=== PATIENT | female | born 1940 | race Caucasian/White ===

== ENCOUNTER 2024-08-05 18:18 | Observation (INO) | payer MEDICARE, BC, SELFPAY ==
--- NOTE | 2024-08-05 18:26 | EKG_ITS ---
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
[2024-08-05 18:48] VITALS: BP 173/70; PULSE 65; RESP 18; TEMP 36.8; O2SAT 94; BMI 22.6
--- NOTE | 2024-08-05 19:00 | XR_ITS ---
Examination: PA chest single view TECHNIQUE: Upright PA chest single view Standing time: August 05, 2024 at 1923 hours INDICATIONS: Such as pain beginning this morning. FINDINGS: Normal heart size Mild opacity left base obscuring detail left hemidiaphragm. Right lung clear. No pulmonary edema. IMPRESSION: Early pneumonia left base.
--- NOTE | 2024-08-05 19:01 | PD.EDRME ---
Rapid Medical Screening Exam E Arrival date/time: 08/05/24 18:18 84F with history of HTN presents to ED with 1 day of CP. Chief Complaint: Chest Pain Vital signs: Vital Signs Temperature 98.3 F 08/05/24 18:48 Pulse Rate 65 08/05/24 18:48 Respiratory Rate 18 08/05/24 18:48 Blood Pressure 173/70 H 08/05/24 18:48 Pulse Oximetry (%) 94 L 08/05/24 18:48 Oxygen Delivery Method Room Air 08/05/24 18:48
[2024-08-05 19:41] LABS: Basophils % (Auto) 0 % (0-2.5); Eosinophils # (Auto) 0.1 Thou/mm3 (0.0-0.5); Eosinophils % (Auto) 1 % (0-10); Hematocrit 42.8 % (36.0-46.0); Immature Granulocytes % (Auto) 0 % (0-0); Immature Granulocytes Auto 0.01 Thou/mm3 (0.00-0.00); Lymphocytes % (Auto) 35 % (10-50); Mean Corpuscular HGB Conc 32.7 g/dl (31.0-37.0); Mean Corpuscular Hemoglobin 30.8 pg (25.0-35.0); Mean Corpuscular Volume 94 fL (80-100); Monocytes # (Auto) 0.5 Thou/mm3 (0.0-0.8); Monocytes % (Auto) 9 % (0-12); Neutrophils # (Auto) 3.1 Thou/mm3 (1.8-7.7); Neutrophils % (Auto) 54 % (37-80); Nucleated Red Blood Cell % 0 /100 WBC (0); Platelet Count 189 Thou/mm3 (140-440); RDW Standard Deviation 49.3 fL (36.4-46.3); Red Blood Count 4.54 Miln/mm3 (4.00-5.20); White Blood Count 5.7 Thou/mm3 (3.6-11.0)
[2024-08-05 19:58] LABS: B-Type Natriuretic Peptide 39 pg/mL (0-100); Partial Thromboplastin Time 25.8 Seconds (22.0-36.0); Prothrombin Time 10.8 Seconds (9.0-12.2)
[2024-08-05 19:59] LABS: Alanine Aminotransferase 43 U/L (10-49); Albumin, Serum 4.2 gm/dL (3.4-4.8); Albumin/Globulin Ratio 1.8 (1.2-2.2); Alkaline Phosphatase 98 U/L (46-116); Anion Gap 8 (7-16); Aspartate Amino Transferase 37 U/L (0-34); BUN/Creatinine Ratio 15 Ratio (12-20); Bilirubin,Total 0.6 mg/dL (0.3-1.2); Blood Urea Nitrogen 16 mg/dL (9-23); Calcium 9.9 mg/dL (8.3-10.6); Calcium (Corrected) 9.9 mg/dL (8.5-10.1); Carbon Dioxide 28.4 mMol/L (20.0-31.0); Chloride 106 mMol/L (98-107); Creatinine (Component) 1.1 mg/dL (0.6-1.3); Estimated Creatinine Clearance 28.2 mL/min (>60); Globulin 2.3 gm/dL (2.3-3.5); Glucose 106 mg/dL (74-106); Osmolality,Calculated 284 (275-295); Potassium 3.8 mMol/L (3.4-5.1); Sodium 142 mMol/L (136-145); Total Protein 6.5 gm/dL (5.7-8.2); Troponin I < 0.020 ng/mL (0.0-0.045); eGFR 49 See Note
--- NOTE | 2024-08-05 23:33 | EDNOTE_ITS ---
ED Chest Pain RME/HPI General Chief Complaint: Chest Pain Stated Complaint: Chest pain left side, light headed, radiates Arrival date/time: 08/05/24 18:18 RME / HPI RME / HPI narrative: 08/05/24 18:18 84F with history of HTN presents to ED with 1 day of CP. ----- Dr. Bright?s Main ED Evaluation: 84yo female with a history of HTN, HLD accompanied by her granddaughter presents to the ED for a chief complaint of chest pain radiating to her left arm. Patient states she's had intermittent chest pain, reporting her pain lasts for 15 seconds, but comes back frequently . She denies any shortness of breath, N/V, sweating or any other associated symptoms. Denies any tobacco use. No known allergies. Related Data Allergies Allergy/AdvReac Type Severity Reaction Status Date / Time NKA* Allergy Uncoded 12/30/11 13:55 Review of Systems Review of Systems Systems Reviewed: All systems reviewed, normal except as documented Narrative Review of Systems: Gen: No fever, no chills, no weight loss EYES: No discharge, no visual changes, no pain HEENT: No ear pain, no congestion, no sore throat PULM: No shortness of breath, no cough, no congestion CV: + chest pain, no dyspnea on exertion, no palpitations GI: No nausea, no vomiting, no diarrhea, no pain, no constipation : No frequency, no urgency, no dysuria Musc/skel: No joint pain, no back pain Skin: No rash. Warm and dry. Psyc: No hallucinations, no depression Heme/Lymph: No easy bleeding or bruising tendencies Neuro: No weakness, no headache Past Medical History Social History SMOKING STATUS: Never smoker ED Exam Narrative Physical exam: GENERAL APPEARANCE: alert and oriented x 4, well-developed, well-nourished, no acute distress VITALS: All vitals were reviewed and the pulse ox is 95% on room air, which is normal according to my interpretation. HEENT: Normocephalic, atraumatic; pupils equal, round, reactive to light; EOMI; mucous membranes pink, moist; oropharynx clear NECK: Supple LUNGS: CTABL; no wheezes, no rales, no rhonchi HEART: Regular rate, regular rhythm; normal S1, S2; no murmurs ABDOMEN: non distended; normal BS; soft, no tenderness, no guarding, no rebound; no masses, no organomegaly, no hernia BACK: no CVA tenderness EXTREMITIES: atraumatic; no edema NEUROLOGIC: awake; alert and oriented x4; cranial nerves II-XII grossly intact; no focal sensory or motor deficits PSYCHIATRIC: appropriate mood and affect SKIN: warm, dry, normal color; no rashes Course Course Course Narrative: CXR is ordered for determining the etiology of chest pain. Quality Measures none Orders Category Date Time Status EKG (ED ONLY) *Do not use* NOW Care 08/05/24 18:26 Completed EKG (ED Only) Stat Exams 08/05/24 18:26 Draft XR chest 1V portable Stat Exams 08/05/24 19:00 Completed B-Type Natriuretic Peptide Stat Lab 08/05/24 19:23 Completed CBC Stat Lab 08/05/24 19:23 Completed Comprehensive Metabolic Panel Stat Lab 08/05/24 19:23 Completed Partial Thromboplastin Time Stat Lab 08/05/24 19:23 Completed Prothrombin Time with INR Stat Lab 08/05/24 19:23 Completed Troponin I Stat Lab 08/05/24 19:23 Completed Troponin I Stat Lab 08/05/24 23:48 Ordered Aspirin Med 08/05/24 23:48 Discontinued 325 mg PO X1 ONE Nitroglycerin Oint 2% [Nitro-paste Oint 2%] Med 08/05/24 23:48 Discontinued 1 inch TOP X1 ONE Vital Signs Vital signs: Vital Signs Temperature 98.3 F 08/05/24 18:48 Pulse Rate 65 08/05/24 18:48 Respiratory Rate 18 08/05/24 18:48 Blood Pressure 173/70 H 08/05/24 18:48 Pulse Oximetry (%) 94 L 08/05/24 18:48 Oxygen Delivery Method Room Air 08/05/24 18:48 Chest Pain MDM Narrative MDM Narrative:: Scribe Attestation: 08/05/24 Becca Nguyen am scribing for and in the presence of Dr. Bright. Patient data External records reviewed:: [facility] previous records (Per chart review, patient has no previous ED visits or admissions to this facility.) Clinical information provided by:: patient Social determinants that could affect healthcare access:: none Patient has the following chronic illnesses:: HTN, HLD How is presenting disease/condition affected by chronic disease/condition?: exacerbated by Evaluation data The following diagnostics were reviewed and interpreted by me:: lab results, radiology exam(s) and EKG tracing(s) Lab and/or radiology exams considered but not ordered:: none Interpretation Summary: CBC is normal, PTT is normal, PT and INR are normal, CMP is normal, initial troponin is normal, according to my interpretation. EKG done at 1852, NSR, rate of 65, left axis deviation, no ectopy, Q waves in lead III, avF, V1-V4, no STEMI, according to my interpretation. ----- [place] [facility] Report Signed Patient: MARYJANE FRY. Record#: [id number] Birthdate: 1940 Age/Sex: 84 / F Location: [facility] Attending Dr: Ordering Physician: Param Healy PA-C Date of Service: 08/05/24 Procedure(s): XR chest 1V portable Accession Number(s): [id number] cc: Mika([facility])Usha MD; Giorgio Coto MD; Param Healy PA-C~ Examination: PA chest single view TECHNIQUE: Upright PA chest single view Standing time: August 05, 2024 at 1923 hours INDICATIONS: Such as pain beginning this morning. FINDINGS: Normal heart size Mild opacity left base obscuring detail left hemidiaphragm. Right lung clear. No pulmonary edema. IMPRESSION: Early pneumonia left base. Dictated By: Giorgio Coto MD Signed By: <Electronically signed by Giorgio Coto MD in > 08/05/24 194 Medications / Prescriptions Medications or Prescriptions considered but not ordered:: none Medication administrations:: Medication Administration History Discontinued Medications Aspirin (Aspirin 325 Mg Tablet) 325 mg PO X1 ONE Stop: 08/05/24 23:49 Nitroglycerin (Nitroglycerin Oint 2% 1 Inch Packet) 1 inch TOP X1 ONE Stop: 08/05/24 23:49 see above Consultations Consultation(s) initiated? (list below): Yes Consultation #1 (Physician, Specialty, Details): Discussed case with [Dr. Jackson] from [cardiology] regarding [consultation]. Discussed patients ED course, exam findings, labs, and radiology results. States to admit the patient. Time: 23:44 Consultation #2 (Physician, Specialty, Details): Discussed case with [the resident physician, attending Dr. Burkett] from Hospitalist service regarding admission. Discussed patients ED course, exam findings, labs, and radiology results. The Hospitalist [agrees] to accept the patient for admission. Time: 23:59 Diagnosis Chest Pain Differential Diagnosis: pneumothorax, st elevation myocardial infa rction and other (NSTEMI, angina, pneumonia) Most likely diagnosis given after review of the tests above:: see below Admission Indicated Admission indicated?: indicated Admission Request Was there a request for admission?: Yes Admission Attestation Admission request attestation: Discussed case with [] from Hospitalist service regarding admission. Discussed patients ED course, exam findings, labs, and radiology results. The Hospitalist [agrees,declines] to accept the patient for admission. Disposition Plan Disposition Plan: Admit Discharge Plan Plan Patient Disposition: Admit Acute Care w/in Hospital Prescriptions/Referrals Referrals: Mika([facility])Usha MD [Primary Care Provider] - In 1 week Problem List Clinical Impression: Chest pain Patient/Caregiver Discharge Instructions Print Language: Filipino Stand Alone Forms: Ayla Award Info., Patient Portal Info Letter
[2024-08-06] VITALS (8 sets, daily range): BP systolic 104–175; BP diastolic 49–64; PULSE 62–94; RESP 16–23; TEMP 36.5–36.9; O2SAT 92–96
[2024-08-06] MEDS: Aspirin 325 MG TABLET PO (00:10)
[2024-08-06] MEDS: NITROGLYCERIN OINT 2% 1 INCH PACKET TOP (00:10)
[2024-08-06 00:33] LABS: Troponin I < 0.020 ng/mL (0.0-0.045)
--- NOTE | 2024-08-06 00:47 | ESHP_ITS ---
Documentation for date of: 08/06/24 HPI History of Present Illness Chief complaint: Chest pain History of present illness: 84-year-old female with past medical history of hypertension, hyperlipidemia presented to the hospital with chief complaints of chest pain since 3 to 4 months. Patient is a healthy individual and stated that she is having on and off chest pain which is more only present on the left side associated with radiation to left arm, without any relation to physical activity and not associated with palpitations, diuresis, shortness of breath, wheezing, pedal edema, orthopnea and PND episodes. Explained that her chest pain is thumping in character. Pain relieves without any medications and rest. On the day of admission, patient had a similar episode of chest pain but lasted for a longer time for which the patient came to the hospital. Denies fever, cough, recent heavy weight lifts. At baseline, patient is able to do her routine daily activities around home and able to walk without the help of a walker. Reported that there is no change in her recent physical activity after she noticed this chest pain ED Course: -Initial vitals were stable except for mildly elevated blood pressure 173/70 mmHg -Labs showed CBC and CMP within normal limits. Troponins are negative -EKG showed sinus rhythm without any ST T wave changes, Q waves noted in lead III. Chest x-ray did not show any infiltrates. -In the ED, patient was given aspirin 325 Mg and nitroglycerin patch. -Patient was admitted for chest pain to rule out ACS Past medical history: Hypertension, hyperlipidemia Past surgical history: Not significant Social history: Denies smoking, alcohol, other illicit drug abuse. Review of Systems Review of Systems Systems Reviewed: All systems reviewed, normal except as documented Exam Vital Signs Temp Pulse Resp BP Pulse Ox O2 Del Method 98.3 F 62 18 175/64 H 94 L Room Air 08/05/24 18:48 08/06/24 00:10 08/05/24 18:48 08/06/24 00:10 08/05/24 18:48 08/05/24 18:48 Narrative Exam General: Awake. HEENT: Normocephalic, atraumatic, mucous membranes moist. Heart: Regular rate and rhythm, no murmurs. Lungs: Clear to auscultation with no wheezing or crackles. Abdomen: Soft, nondistended, nontender, positive bowel sounds. ?No guarding or rebound tenderness. Neurologic: Alert and oriented x3, no gross neurological deficit, and patient able to move all 4 extremities. Extremities: No edema. Skin: No rash or ecchymoses. Results: Labs 08/06/24 08:06 08/06/24 08:06 Labs: Short CBC 08/05/24 Range/Units 19:23 WBC 5.7 (3.6-11.0) Thou/mm3 Hgb 14.0 (12.0-16.0) g/dL Hct 42.8 (36.0-46.0) % Plt Count 189 (140-440) Thou/mm3 BMP 08/05/24 19:23 Sodium 142 Potassium 3.8 Chloride 106 Carbon Dioxide 28.4 BUN 16 Creatinine 1.1 Glucose 106 Calcium 9.9 Cardiac Enzymes 08/05/24 08/06/24 Range/Units 19:23 00:05 Troponin I < 0.020 < 0.020 (0.0-0.045) ng/mL Liver Function 08/05/24 Range/Units 19:23 Total Bilirubin 0.6 (0.3-1.2) mg/dL AST 37 H (0-34) U/L ALT 43 (10-49) U/L Alkaline Phosphatase 98 (46-116) U/L Albumin 4.2 (3.4-4.8) gm/dL Quality Measures Quality Measures none Advance care planning discussed with:: patient Medications Home Medications and Allergies Home Medications ?Medication ?Instructions ?Recorded ?Confirmed ?Type atorvastatin 20 mg tablet mg 08/06/24 History losartan 100 tab 08/06/24 History mg-hydrochlorothiazide 25 mg tablet Allergies Allergy/AdvReac Type Severity Reaction Status Date / Time No Known Allergies Allergy Unverified 08/06/24 13:49 Visit Medications Acetaminophen (Acetaminophen 325 Mg Tablet) 650 mg PO Q6H PRN PRN Reason: Fever >101.5 Stop: 09/05/24 00:39 Aspirin (Aspirin Ec 81 Mg Tabec) 81 mg PO QDAY SHANELL Stop: 09/05/24 08:59 Atorvastatin Calcium (Atorvastatin Calcium 20 Mg Tablet) 20 mg PO HS SHANELL Stop: 09/05/24 20:59 Enoxaparin Sodium (Enoxaparin Sod Inj 40 Mg/0.4 Ml Syringe) 40 mg SC QDAY SHANELL Stop: 08/20/24 08:59 Magnesium Hydroxide (Milk Of Magnesia Susp 30 Ml Udc) 30 ml PO QDAY PRN; Protocol PRN Reason: CONSTIPATION Stop: 09/05/24 00:39 Ondansetron HCl (Ondansetron Inj 2 Mg/Ml Inj 2 Ml) 4 mg IV Q6H PRN; Protocol PRN Reason: NAUSEA OR VOMITING Stop: 09/05/24 00:39 Pantoprazole Sodium (Pantoprazole 40 Mg Tablet) 40 mg PO QDAY SHANELL Stop: 09/05/24 08:59 Discontinued Medications Aspirin (Aspirin 325 Mg Tablet) 325 mg PO X1 ONE Stop: 08/05/24 23:49 Last Admin: 08/06/24 00:10 Dose: 325 mg Nitroglycerin (Nitroglycerin Oint 2% 1 Inch Packet) 1 inch TOP X1 ONE Stop: 08/05/24 23:49 Last Admin: 08/06/24 00:10 Dose: 1 inch Assessment & Plan Plan 84-year-old female with past medical history of hypertension, hyperlipidemia presented to the hospital with chief complaints of chest pain since 3 to 4 months and admitted to rule out ACS # Angina, likely noncardiac -Patient came to the hospital with complaints of chest pain since 3 to 4 months, on and off radiating to left arm -Denies aggravating and relieving factors, no associated sweating, shortness of breath, palpitations -1/3 of typical anginal symptoms. -But patient is found to have a risk factors like age, hypertension, hyperlipidemia -Vitals are stable at the time of admission except for mildly elevated blood pressure 173/70 mmHg. -Troponins are negative when checked 5 hours apart -EKG showed normal sinus rhythm with no ST-T wave changes -Chest x-ray showed no infiltrates. Plan -Started on aspirin and atorvastatin -Consulted director industrial museum Dr. Jackson and will appreciate his recommendations -Ordered an echo, TSH HbA1c and lipid profile # History of hypertension -Blood pressures are within normal limits -Monitor blood pressure and start medications as needed # History of hyperlipidemia -Lipid profile is ordered and started on atorvastatin 40 Mg p.o. at bedtime Hospital Maintenance: Dispo: Observation, telemetry DVT ppx: Enoxaparin GI ppx: Pantoprazole Diet: Cardiac IV lines: Peripheral Code status: Full code Patient plan of care was discussed with the attending physician, Dr. Lizy Marie, PGY1 Attending Provider Attestation/Addendum I attest that I was physically present for the evaluation, physical examination, lab and imaging review of the patient with the residents. I discussed the case with the residents and agree with the findings and plans of care as documented above. Patient is an 84 years old female with past medical history of hypertension, hyperlipidemia who presented to the ED with complaint of chest pain for last 3 to 4 months. She states that she has been having on and off chest pain radiating to her left arm which occurs randomly both at rest and on activity. Denies palpitations, shortness of breath. The chest pain are relieved without medications. But today, her chest pain lasted longer and she decided to visit the ED. Patient had a blood pressure of 173/70 in the ED, rest of the vitals were within normal limits. Initial troponin was negative. EKG shows sinus rhythm without ST changes. Patient received aspirin and nitroglycerin in the ED. Cardiology was consulted by ED, who recommended admitting patient for observation to rule out acute CAD. We will keep patient on observation for atypical chest pain, we will trend troponin, started on aspirin and atorvastatin and await cardiology recommendations. Rosario Medel MD
[2024-08-06] MEDS: ATORVASTATIN CALCIUM 20 MG TABLET 40 MG PO (01:48)
[2024-08-06 08:25] LABS: Basophils % (Auto) 0 % (0-2.5); Eosinophils % (Auto) 1 % (0-10); Hematocrit 40.4 % (36.0-46.0); Hemoglobin 13.3 g/dL (12.0-16.0); Immature Granulocytes % (Auto) 1 % (0-0); Immature Granulocytes Auto 0.04 Thou/mm3 (0.00-0.00); Lymphocytes # (Auto) 1.5 Thou/mm3 (1.0-4.8); Lymphocytes % (Auto) 27 % (10-50); Mean Corpuscular HGB Conc 32.9 g/dl (31.0-37.0); Mean Corpuscular Hemoglobin 30.9 pg (25.0-35.0); Mean Corpuscular Volume 94 fL (80-100); Monocytes # (Auto) 0.5 Thou/mm3 (0.0-0.8); Monocytes % (Auto) 8 % (0-12); Neutrophils # (Auto) 3.5 Thou/mm3 (1.8-7.7); Neutrophils % (Auto) 63 % (37-80); Nucleated Red Blood Cell % 0 /100 WBC (0); Platelet Count 198 Thou/mm3 (140-440); RDW Standard Deviation 50.1 fL (36.4-46.3); Red Blood Count 4.31 Miln/mm3 (4.00-5.20); White Blood Count 5.6 Thou/mm3 (3.6-11.0)
[2024-08-06 08:41] LABS: Glucose Estimated Average 111 mg/dL (80-131); Hemoglobin A1C 5.5 % Hgb (4.8-6.0)
[2024-08-06 08:54] LABS: Anion Gap 6 (7-16); BUN/Creatinine Ratio 16 Ratio (12-20); Blood Urea Nitrogen 16 mg/dL (9-23); Calcium 9.6 mg/dL (8.3-10.6); Carbon Dioxide 29.7 mMol/L (20.0-31.0); Cardiac Risk Estimate 2.7 RATIO (3.7-5.6); Chloride 107 mMol/L (98-107); Cholesterol 169 mg/dL (132-200); Glucose 97 mg/dL (74-106); HDL Cholesterol 63 mg/dL (40-60); LDL Cholesterol,Calculated 81 mg/dL (0-130); Osmolality,Calculated 286 (275-295); Potassium 4.2 mMol/L (3.4-5.1); Sodium 143 mMol/L (136-145); Triglycerides 124 mg/dL (30-150); Troponin I < 0.020 ng/mL (0.0-0.045); eGFR 55 See Note
--- NOTE | 2024-08-06 12:04 | ESDS_ITS ---
<Statement entered by Joshua Perez MD - 08/12/24 15:57> I reviewed above note and agree with findings and plans. I have also personally examined the patient with medicine team and went over assessment and plan with medical team including advertising intern and resident physician. Planned Discharge Date 08/06/24 DS: Providers Provider Date of admission: 08/06/24 00:40 Primary care physician: Usha Brennan([facility])MD Admitting Provider: Michael Marie MD Attending Provider on Admission: Rosario Medel MD Attending Provider on DC: Joshua Perez MD Discharging Provider: Jose G Rubio MD DS: Diagnosis Problem List Completed Was Problem List Reviewed/Reconciled?: Yes Hospital Course Hospital Course Hospital course: Hospital Course: Ms Lopes is a 84-year-old female with past medical history of hypertension, hyperlipidemia presented to the hospital with chief complaints of chest pain since 3 to 4 months. Patient is a healthy individual and stated that she is having on and off chest pain which is more only present on the left side associated with radiation to left arm, without any relation to physical activity and not associated with palpitations, diuresis, shortness of breath, wheezing, pedal edema, orthopnea and PND episodes. Patient was admitted for chief complaints of chest pain, to rule out ACS. She has never had outpatient cardiac evaluation, otherwise is ambulatory and independent with ADL. Problems on this admission: - Stable Angina - Primary hypertension - Hyperlipidemia Procedures: None Discharge instructions: - Follow up with your PCP within 1 week - Please follow up with Cardiology - Call [phone] for appt. Address [address] [place] [address] - Started Atorvastatin 20mg HS until further cardiac evaluation - Chest pain likely musculoskeletal in origin. Can take Tylenol for pain - May take Celecoxib up to twice a day for pain - Return to ED if symptoms worsen We are grateful to be able to participate in Mr Lopes's care. We wish her the best. - Jose G Rubio MD Status at Discharge Cognitive/behavioral status at discharge: Stable and returned to baseline Time Spent with Patient Time attestation: Total time spent providing and/or coordinating discharge services : more than 50% Exam Vital Signs Temp Pulse Resp BP Pulse Ox O2 Del Method 98.3 F 94 18 106/54 L 96 Room Air 08/06/24 08:38 08/06/24 08:38 08/06/24 08:38 08/06/24 08:38 08/06/24 08:38 08/06/24 08:38 Narrative Exam Constitutional Alert, oriented x3 and comfortable HEENT Vision grossly intact. Patent nares. Trachea midline. Respiratory Chest normal on inspection and clear to auscultation bilaterally. Cardiovascular S1 and S2 audible, RRR. No murmurs or carotid bruit. No gross JVD. Abdominal Soft and non tender to palpation in all quadrants. BS + Genitourinary No bladder tenderness, no flank pain. Normal to palpation. Musculoskeletal Extremities tone within normal limits. No LE edema. Neurological CN II - XII grossly intact. Extremity motor and sensation grossly intact. Skin Warm, dry and intact. No apparent lesions. Psychiatric Patient has a good affect, is cooperative. Discharge Plan Plan Patient Disposition: HOME (Self Care) Disposition Comment: Tele Obs Patient condition on transfer: Stable Prescriptions/Referrals Prescriptions/Med Rec: New celecoxib 100 mg capsule 100 mg PO BID PRN (Reason: pain) 5 Days Qty: 10 0RF acetaminophen 500 mg tablet 1,000 mg PO Q6H PRN (Reason: fever or pain) Qty: 14 0RF atorvastatin 20 mg tablet 20 mg PO QPM 30 Days Qty: 30 0RF No Action atorvastatin 20 mg tablet Patient Comments: TAKE 1 TABLET BY MOUTH EVERY DAY losartan-hydrochlorothiazide 100-25 mg tablet Patient Comments: TAKE 1 TABLET BY MOUTH EVERY DAY Referrals: Mika([facility])Usha MD [Primary Care Provider] - Patient/Caregiver Discharge Instructions Discharge Activity: resume usual activities Other Discharge Activity Instructions:: - Follow up with your PCP within 1 week - Recommend outpatient cardiac work up. Call [phone] for appt. Address [address] [place] [address] - Chest pain likely musculoskeletal. Can take Tylenol for pain - May take Celecoxib up to twice a day for pain - Return to ED if symptoms worsen Education Materials: ED Chest Pain, Uncertain Cause Print Language: Setswana Stand Alone Forms: Ayla Award Info., Patient Portal Info Letter, Work/Release Restrictions Discharge Order Discharge Orders: Discharge (Routine); Ordered 08/06/24 Ordered By: Jose G Rubio Quality Discharge Quality Measures VTE prophylaxis
[2024-08-06] MEDS: ASPIRIN EC 81 MG TABEC PO (13:02)
[2024-08-06] MEDS: PANTOPRAZOLE 40 MG TABLET PO (13:03)
== END 2024-08-06 15:03 | disposition home or self-care (01) ==
LOC: SERX 08-06 → S3SX 08-06 11:59 → SERHOLD 08-08 11:46 → S3SX 08-08 11:46
PROVIDERS: Physician Assistant; Admitting Provider Student in an Organized Health Care Education/Training Program; Emergency Provider Emergency Medicine; PCP Internal Medicine; Referring Provider Emergency Medicine; Visit Provider Student in an Organized Health Care Education/Training Program
DX: J18.9 Pneumonia, unspecified organism (principal); I20.89 Other forms of angina pectoris; E78.5 Hyperlipidemia, unspecified; I10 Essential (primary) hypertension
CPT/HCPCS: 36415; 71045; 80048; 80053; 80061; 83036; 83880; 84484; 85025; 85610; 85730; 87811; 93005; 99285; G0378; A9270

== ENCOUNTER → 2024-08-31 | Outpatient (CLI) | payer MEDICARE, BC, SELFPAY ==
[2024-08-31 07:21] LABS: Quantiferon-TB* See Sep Rpt
[2024-08-31 08:05] LABS: Collection Type, Urine Clean Catch
[2024-08-31 08:29] LABS: Basophils % (Auto) 0 % (0-2.5); Eosinophils % (Auto) 1 % (0-10); Hematocrit 40.6 % (36.0-46.0); Hemoglobin 13.9 g/dL (12.0-16.0); Immature Granulocytes % (Auto) 0 % (0-0); Immature Granulocytes Auto 0.01 Thou/mm3 (0.00-0.00); Lymphocytes # (Auto) 1.3 Thou/mm3 (1.0-4.8); Lymphocytes % (Auto) 22 % (10-50); Mean Corpuscular HGB Conc 34.2 g/dl (31.0-37.0); Mean Corpuscular Hemoglobin 31.7 pg (25.0-35.0); Mean Corpuscular Volume 93 fL (80-100); Monocytes # (Auto) 0.5 Thou/mm3 (0.0-0.8); Monocytes % (Auto) 8 % (0-12); Neutrophils # (Auto) 4.3 Thou/mm3 (1.8-7.7); Neutrophils % (Auto) 70 % (37-80); Nucleated Red Blood Cell % 0 /100 WBC (0); Platelet Count 180 Thou/mm3 (140-440); RDW Standard Deviation 47.9 fL (36.4-46.3); Red Blood Count 4.39 Miln/mm3 (4.00-5.20); White Blood Count 6.2 Thou/mm3 (3.6-11.0)
[2024-08-31 08:53] LABS: Bilirubin,Urine Negative (Negative); Blood,Urine Negative (Negative); Clarity,Urine Clear (Clear/Hazy); Color,Urine Yellow (Lt Yel-Yel); Glucose, Urine Negative (Negative); Ketones,Urine Negative (Negative); Leukocyte Esterase,Urine Positive (Negative); Nitrite,Urine Negative (Negative); PH,Urine 5.5 (5.0-7.0); Protein,Urine Trace (Neg - Trace); RBC,Urine 3 /hpf (0-3); Specific Gravity,Urine 1.033 (1.001-1.035); Squamous Epithelial Cell,Urine 3 /hpf (0-5); WBC,Urine 3 /hpf (0-5)
[2024-08-31 08:54] LABS: Alanine Aminotransferase 11 U/L (10-49); Albumin, Serum 3.9 gm/dL (3.4-4.8); Albumin/Globulin Ratio 2.3 (1.2-2.2); Anion Gap 8 (7-16); Aspartate Amino Transferase < 8 U/L (0-34); BUN/Creatinine Ratio 13 Ratio (12-20); Bilirubin,Direct 0.3 mg/dL (0.0-0.3); Bilirubin,Total 0.8 mg/dL (0.3-1.2); Blood Urea Nitrogen 12 mg/dL (9-23); Calcium 9.4 mg/dL (8.3-10.6); Calcium (Corrected) 9.5 mg/dL (8.5-10.1); Carbon Dioxide 25.2 mMol/L (20.0-31.0); Cardiac Risk Estimate 2.6 RATIO (3.7-5.6); Chloride 108 mMol/L (98-107); Cholesterol 168 mg/dL (132-200); Creatinine (Component) 0.9 mg/dL (0.6-1.3); Free T4 (Free Thyroxine) 1.28 ng/dL (0.89-1.76); Globulin 1.7 gm/dL (2.3-3.5); Glucose 90 mg/dL (74-106); HDL Cholesterol 64 mg/dL (40-60); LDL Cholesterol,Calculated 78 mg/dL (0-130); Osmolality,Calculated 280 (275-295); Potassium 4.1 mMol/L (3.4-5.1); Sodium 141 mMol/L (136-145); Thyroid Stimulating Hormone 2.03 uIU/mL (0.55-4.78); Total Protein 5.6 gm/dL (5.7-8.2); Triglycerides 131 mg/dL (30-150); Uric Acid 4.5 mg/dL (3.1-7.8); eGFR > 60 See Note
[2024-08-31 09:15] LABS: Alkaline Phosphatase 91 U/L (46-116)
[2024-09-05 07:04] LABS: T3 Uptake* 30 % (22-35)
== END | disposition home or self-care (01) ==
LOC: COPL 06:58
PROVIDERS: PCP Nurse Practitioner Family; Referring Provider Nurse Practitioner Family; Visit Provider Nurse Practitioner Family
DX: F41.9 Anxiety disorder, unspecified (principal); E78.5 Hyperlipidemia, unspecified
CPT/HCPCS: 36415; 80053; 80061; 81001; 82248; 82306; 83036; 84100; 84439; 84443; 84479; 84550; 85025; 86480